=== PATIENT | male | born 1975 | race Caucasian/White ===

== ENCOUNTER 2022-06-30 02:46 | Emergency (ER) | payer BC, MEDICAID | END 2022-06-30 03:39 | disposition home or self-care (01) | LOC: JD.ED 02:46 | DX: S01.01XA Laceration without foreign body of scalp, initial encounter (principal); I10 Essential (primary) hypertension; F17.210 Nicotine dependence, cigarettes, uncomplicated; W01.198A Fall on same level from slipping, tripping and stumbling with subsequent striking against other object, initial encounter | CPT/HCPCS: 12002; 12013; 99282; 99283 ==